=== PATIENT | male | born 1985 | race Caucasian/White ===

== ENCOUNTER 2016-09-04 22:26 | Emergency (ER) | payer MEDICAID, OTHER ==
[2016-09-04 23:58] LABS: PTT 26.6 SEC (22.9-36.1); Prothrombin Time 13.1 SEC (12.0-14.7)
[2016-09-05] LABS: Amphetamine Not Detected (NotDetected); Barbiturates Screen Not Detected (NotDetected); Benzodiazepine Screen Not Detected (NotDetected); Cocaine Metabolite Screen Not Detected (NotDetected); Medtox Control Line Valid? VALID (VALID); Methadone Not Detected (NotDetected); Methamphetamine Not Detected (NotDetected); Opiate Screen Not Detected (NotDetected); Oxycodone Screen Not Detected (NotDetected); Phencyclidine (PCP) Not Detected (NotDetected); THC/Cannabinoid Screen Not Detected (NotDetected); Tricyclic Screen Not Detected (NotDetected)
[2016-09-05 00:01] LABS: Bacteria/HPF 2+ HPF (None Seen); Bilirubin Negative (Negative); Blood, Urine Negative (Negative); Clarity Turbid (Clear); Crystals/HPF 3+ AMORPH PHOS HPF (Negative); Glucose, Urine (Dipstick) Negative (Negative); Leukocyte Trace (Negative); Nitrite Negative (Negative); Protein, Urine (Dipstick) Negative (Neg-Trace); RBC/HPF 0-3 HPF (0-3); Renal Epithelial 0-3 HPF (0-3); Specific Gravity, Urine 1.025 (1.005-1.030); Transitional Epithelial 0-3 HPF (0-3); Urobilinogen 0.2 mg/dL (0.2-1.0); pH, Urine 7.5 (5.0-9.0)
[2016-09-05 00:05] LABS: Acetaminophen Less than 6.0 mcg/mL (10.0-30.0); Alcohol Less than 10 mg/dL (Less than 10); Salicylate Less than 8.0 mg/dL (15.0-30.0)
[2016-09-05 00:08] LABS: #Basophils 0.1 thou/uL (0.0-0.2); #Eosinphils 0.2 thou/uL (0.0-0.7); #Lymphocytes 2.5 thou/uL (1.20-3.40); #Monocytes 0.6 thou/uL (0.11-0.59); #Neutrophils 5.3 thou/uL (1.40-6.50); %Eosinophils 2.7 % (0.0-10.0); %Lymphocytes 28.7 % (21.0-51.0); %Monocytes 7.3 % (0.0-10.0); %Neutrophils 60.3 % (42.0-75.0); Hemoglobin 14.7 g/dL (14.0-18.0); Mean Corpuscular HGB CONC 34.3 g/dL (32.0-36.0); Mean Corpuscular Hemoglobin 30.8 pg (27.0-31.0); Mean Corpuscular Volume 89.7 fl (80.0-94.0); Mean Platelet Volume 8.8 fL (7.4-10.4); Platelet Count 223 thou/uL (130-400); RBC Distribution Width 11.4 % (11.5-14.5); Red Blood Cell (RBC) Count 4.79 mill/uL (4.70-6.10); White Blood Cell (WBC) Count 8.8 thou/uL (4.8-10.8)
[2016-09-05 00:11] LABS: ALT (SGPT) 16 U/L (8-55); AST (SGOT) 14 U/L (5-34); Alkaline Phosphatase 69 U/L (40-150); Anion Gap 12 mmol/L (10-20); BUN (Urea Nitrogen) 14 mg/dL (8.9-20.6); Bilirubin, Total Less than 0.3 mg/dL (0.2-1.2); CK (CPK) 114 U/L (30-200); Calc. Creatinine Clearance 0 mL/min (70-130); Calcium 9.4 mg/dL (7.8-10.44); Carbon Dioxide 26 mmol/L (22-29); Chloride 106 mmol/L (98-107); Estimated GFR-MDRD Greater than 90; Globulin 2.6 g/dL (2.4-3.5); Glucose 93 mg/dL (70-105); Magnesium 2.5 mg/dL (1.6-2.6); Potassium 3.9 mmol/L (3.5-5.1); Protein, Total 6.6 g/dL (6.0-8.3); Sodium 140 mmol/L (136-145)
[2016-09-05 00:20] LABS: CKMB 0.8 ng/mL (0-6.6); Troponin I Less than 0.010 ng/mL (< 0.028)
[2016-09-05] MEDS ORDERED: Sulfameth/Trimethoprim DS 800-160mg TAB ONE (01:21)
[2016-09-05] MEDS ORDERED: ALPRAZolam 0.25 MG TAB ONE ×2 (01:37→01:38)
--- NOTE | 2016-09-05 11:08 | RAD ---
UPRIGHT PORTABLE CHEST 1 VIEW: Date: 09/04/16 HISTORY: 31-year-old male with seizure. COMPARISON: 03/13/16. FINDINGS: Heart size is normal. The lungs are clear. No pneumonia, edema, pleural effusion, or other acute pro cess. Stable from prior study. IMPRESSION: No acute intrathoracic disease. POS: [facility]
--- NOTE | 2016-09-05 14:26 | CT ---
PRELIMINARY REPORT/[facility]/EMERGENCY AFTER HOURS PROCEDURE: EXAM: CT Cervical Spine Without Intravenous Contrast CLINICAL HISTORY: 31 years old, male; Injury or trauma; Fall; Initial encounter; Abrasion TECHNIQUE: Axial computed tomography images of the cervical spine without intravenous contrast. Coronal and sagittal reformatted images were created and reviewed. COMPARISON: No relevant prior studies available. FINDINGS: Vertebrae: Straightening of the cervical spine. No acute fracture. Discs/spinal canal/neural foramina: No acute findings. No spinal canal stenosis. Soft tissues: Unremarkable. Lung apices: Unremarkable as visualized. IMPRESSION: No acute cervical spine fracture or dislocation. Thank you for allowing us to participate in the care of your patient. Dictated and Authenticated by: Viola Palafox MD 09/05/2016 12:36 AM Central Time ([place] \[place]\ [place]) FINAL REPORT EMERGENCY AFTER HOURS CERVICAL SPINE CT SCAN WITHOUT IV CONTRAST: Date: 09/05/16 Time: 0012 hours IMPRESSION: There is some straightening of the cervical spine. No acute fracture or facet dislocation. Report in agreement with preliminary report given on-call by Gustavo. POS: [facility]
--- NOTE | 2016-09-05 14:27 | CT ---
PRELIMINARY REPORT/[facility]/EMERGENCY AFTER HOURS PROCEDURE: EXAM: CT Head Without Intravenous Contrast CLINICAL HISTORY: 31 years old, male; Injury or trauma; Fall TECHNIQUE: Axial computed tomography images of the head/brain without intravenous contrast. Coronal and sagittal reformatted images were created and reviewed. COMPARISON: No relevant prior studies available. FINDINGS: Brain: No hemorrhage. No significant white matter disease. No edema. Ventricles: Unremarkable. No ventriculomegaly. Bones/joints: Unremarkable. No acute fracture. Soft tissues: Unremarkable. Sinuses: Unremarkable as visualized. No acute sinusitis. Mastoid air cells: Unremarkable as visualized. No mastoid effusion. IMPRESSION: Normal head/brain CT. Thank you for allowing us to participate in the care of your patient. Dictated and Authenticated by: Viola Palafox MD 09/05/2016 12:37 AM Central Time ([place] \[place]\ [place]) FINAL REPORT EMERGENCY AFTER HOURS BRAIN CT WITHOUT IV CONTRAST: Date: 09/05/16 Time: 0008 hours IMPRESSION: No mass or bleed, or other significant acute intracranial process. Stable from 09/10/15. Report in agreement with preliminary report given on-call by Gustavo. POS: [facility]
== END 2016-09-05 01:46 ==
LOC: MADERS 22:26
DX: S00.03XA Contusion of scalp, initial encounter (principal); F43.0 Acute stress reaction; N39.0 Urinary tract infection, site not specified; F41.9 Anxiety disorder, unspecified; F25.9 Schizoaffective disorder, unspecified; F32.9 Major depressive disorder, single episode, unspecified; F17.210 Nicotine dependence, cigarettes, uncomplicated; G89.29 Other chronic pain; M54.9 Dorsalgia, unspecified; Z91.14 Patient's other noncompliance with medication regimen; W01.190A Fall on same level from slipping, tripping and stumbling with subsequent striking against furniture, initial encounter; Y92.096 Garden or yard of other non-institutional residence as the place of occurrence of the external cause
CPT/HCPCS: 36415; 70450; 71010; 72125; 80053; 80306; 80307; 81001; 82550; 82553; 83735; 83880; 84443; 84484; 85025; 85610; 85730; 87086; 93005; 94760

== ENCOUNTER 2018-02-20 15:09 | Emergency (ER) | payer OTHER ==
[2018-02-20 15:45] LABS: Bilirubin Negative (Negative); Blood, Urine Negative (Negative); Clarity Clear (Clear); Glucose, Urine (Dipstick) Negative (Negative); Leukocyte Negative (Negative); Nitrite Negative (Negative); Protein, Urine (Dipstick) Negative (Neg-Trace); Urobilinogen 0.2 mg/dL (0.2-1.0); pH, Urine 7.5 (5.0-9.0)
[2018-02-20 16:00] LABS: Amphetamine Detected (NotDetected); Barbiturates Screen Not Detected (NotDetected); Benzodiazepine Screen Not Detected (NotDetected); Cocaine Metabolite Screen Not Detected (NotDetected); Medtox Control Line Valid? VALID (VALID); Methadone Not Detected (NotDetected); Methamphetamine Not Detected (NotDetected); Opiate Screen Not Detected (NotDetected); Oxycodone Screen Not Detected (NotDetected); Phencyclidine (PCP) Not Detected (NotDetected); THC/Cannabinoid Screen Detected (NotDetected); Tricyclic Screen Not Detected (NotDetected)
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
== END 2018-02-20 16:10 | disposition home or self-care (01) ==
LOC: MADERS 15:09
DX: M54.5 Low back pain (principal); F41.9 Anxiety disorder, unspecified; F32.9 Major depressive disorder, single episode, unspecified; F20.9 Schizophrenia, unspecified; F41.0 Panic disorder [episodic paroxysmal anxiety]; F17.210 Nicotine dependence, cigarettes, uncomplicated; V43.62XA Car passenger injured in collision with other type car in traffic accident, initial encounter
CPT/HCPCS: 72100; 80306; 81003

== ENCOUNTER 2018-07-15 09:06 | Emergency (ER) | payer OTHER ==
[2018-07-15 09:44] LABS: #Basophils 0.1 thou/uL (0.0-0.2); #Eosinphils 0.3 thou/uL (0.0-0.7); #Lymphocytes 2.5 thou/uL (1.20-3.40); #Monocytes 0.6 thou/uL (0.11-0.59); #Neutrophils 7.3 thou/uL (1.40-6.50); %Basophils 0.6 % (0.0-1.0); %Eosinophils 2.7 % (0.0-10.0); %Lymphocytes 23.1 % (21.0-51.0); %Monocytes 5.7 % (0.0-10.0); %Neutrophils 67.8 % (42.0-75.0); Hemoglobin 14.7 g/dL (14.0-18.0); Mean Corpuscular HGB CONC 33.3 g/dL (32.0-36.0); Mean Corpuscular Hemoglobin 29.9 pg (27.0-31.0); Mean Corpuscular Volume 89.8 fL (78.0-98.0); Mean Platelet Volume 7.9 fL (7.4-10.4); Platelet Count 221 thou/uL (130-400); Red Blood Cell (RBC) Count 4.93 mill/uL (4.70-6.10); White Blood Cell (WBC) Count 10.8 thou/uL (4.8-10.8)
[2018-07-15 09:55] LABS: ALT (SGPT) 30 U/L (8-55); AST (SGOT) 19 U/L (5-34); Albumin 4.2 g/dL (3.5-5.0); Alkaline Phosphatase 62 U/L (40-150); Anion Gap 13 mmol/L (10-20); BUN (Urea Nitrogen) 14 mg/dL (8.9-20.6); Bilirubin, Total 0.2 mg/dL (0.2-1.2); Calc. Creatinine Clearance 0 mL/min (70-130); Calcium 9.1 mg/dL (7.8-10.44); Carbon Dioxide 27 mmol/L (22-29); Chloride 107 mmol/L (98-107); Estimated GFR-MDRD Greater than 90; Globulin 2.3 g/dL (2.4-3.5); Glucose 92 mg/dL (70-105); Potassium 4.2 mmol/L (3.5-5.1); Protein, Total 6.5 g/dL (6.0-8.3); Sodium 143 mmol/L (136-145)
[2018-07-15 09:56] LABS: Acetaminophen Less than 6.0 mcg/mL (10.0-30.0); Alcohol Less than 10 mg/dL (Less than 10); Salicylate Less than 8.0 mg/dL (15.0-30.0)
--- NOTE | 2018-07-15 09:59 | CT ---
EXAM: CT cervical spine PROVIDED CLINICAL HISTORY: Neck pain after falling down stairs secondary to a seizure. TECHNIQUE: Contiguous axial CT images are obtained through the cervical spine from the skull base to the level o f the T1 vertebral body. Sagittal and coronal reformatted images are provided. COMPARISON: 09/05/2016 FINDINGS: There is straightening of the normal cervical lordotic curvature which may be related to muscle spasm or positioning. No fracture or subluxation is seen involving the cervical spine. There is a prominent uncinate process hypertrophy at the C3-4 level which encroaches on the neural foramina grea ter on the right. No prevertebral soft tissue swelling apparent. Visualized lung apices appear clear. CT cervical spine is overall stable compared to study in 2017. IMPRESSION: No evidence for fracture or traumatic subluxation.
[2018-07-15 10:00] LABS: Bilirubin Negative (Negative); Blood, Urine Negative (Negative); Clarity Slightly Cloudy (Clear); Glucose, Urine (Dipstick) Negative (Negative); Leukocyte Negative (Negative); Nitrite Negative (Negative); Protein, Urine (Dipstick) Negative (Neg-Trace); Specific Gravity, Urine 1.025 (1.005-1.030); Urobilinogen 0.2 mg/dL (0.2-1.0); pH, Urine 6.5 (5.0-9.0)
[2018-07-15 10:13] LABS: Amphetamine Not Detected (NotDetected); Barbiturates Screen Not Detected (NotDetected); Benzodiazepine Screen Not Detected (NotDetected); Cocaine Metabolite Screen Not Detected (NotDetected); Medtox Control Line Valid? VALID (VALID); Methadone Not Detected (NotDetected); Methamphetamine Not Detected (NotDetected); Opiate Screen Not Detected (NotDetected); Oxycodone Screen Not Detected (NotDetected); Phencyclidine (PCP) Not Detected (NotDetected); THC/Cannabinoid Screen Detected (NotDetected); Tricyclic Screen Not Detected (NotDetected)
--- NOTE | 2018-07-15 10:59 | CT ---
CT HEAD WITHOUT CONTRAST: INDICATIONS: Seizure. Fall. Injury. COMPARISON: 09/05/2016 FINDINGS: There is no acute intracranial hemorrhage, mass effect, midline shift, or ventriculomegaly. No acute fluid level of the paranasal sinuses. IMPRESSION: No acute intracranial hemorrhage or mass effect. POS: [facility]
[2018-07-15] MEDS ORDERED: Ibuprofen 800 MG TAB ONE (13:34)
[2018-07-15 14:57] LABS: Carbamazepine-Tegretol 6.3 ug/mL (4.0-12.0)
== END 2018-07-15 15:55 | disposition home or self-care (01) ==
LOC: MADERS 09:06
DX: R56.9 Unspecified convulsions (principal); S16.1XXA Strain of muscle, fascia and tendon at neck level, initial encounter; F41.0 Panic disorder [episodic paroxysmal anxiety]; F32.9 Major depressive disorder, single episode, unspecified; F20.9 Schizophrenia, unspecified; F17.210 Nicotine dependence, cigarettes, uncomplicated; Z79.899 Other long term (current) drug therapy; W19.XXXA Unspecified fall, initial encounter
CPT/HCPCS: 36415; 70450; 72125; 80053; 80156; 80306; 80307; 81003; 83605; 85025

== ENCOUNTER 2018-08-27 14:55 | Emergency (ER) | payer OTHER | END 2018-08-27 15:37 | LOC: MADERS 14:55 | DX: R56.9 Unspecified convulsions (principal); F20.9 Schizophrenia, unspecified; F32.9 Major depressive disorder, single episode, unspecified; F41.0 Panic disorder [episodic paroxysmal anxiety]; F17.210 Nicotine dependence, cigarettes, uncomplicated; Z79.899 Other long term (current) drug therapy | CPT/HCPCS: 99284 ==

== ENCOUNTER 2018-08-29 07:53 | Emergency (ER) | payer OTHER ==
[2018-08-29] MEDS ORDERED: carBAMazepine 200 MG TAB ONE (08:19)
[2018-08-29 08:44] LABS: #Basophils 0.1 thou/uL (0.0-0.2); #Eosinphils 0.3 thou/uL (0.0-0.7); #Lymphocytes 1.8 thou/uL (1.20-3.40); #Monocytes 0.5 thou/uL (0.11-0.59); #Neutrophils 4.6 thou/uL (1.40-6.50); %Eosinophils 4.3 % (0.0-10.0); %Lymphocytes 24.6 % (21.0-51.0); %Monocytes 6.5 % (0.0-10.0); %Neutrophils 63.7 % (42.0-75.0); Hemoglobin 14.6 g/dL (14.0-18.0); Mean Corpuscular HGB CONC 32.8 g/dL (32.0-36.0); Mean Corpuscular Hemoglobin 29.2 pg (27.0-31.0); Mean Platelet Volume 8.1 fL (7.4-10.4); Platelet Count 218 thou/uL (130-400); RBC Distribution Width 11.7 % (11.5-14.5); White Blood Cell (WBC) Count 7.2 thou/uL (4.8-10.8)
[2018-08-29 08:56] LABS: Anion Gap 9 mmol/L (10-20); BUN (Urea Nitrogen) 12 mg/dL (8.9-20.6); Calc. Creatinine Clearance 0 mL/min (70-130); Carbon Dioxide 28 mmol/L (22-29); Chloride 107 mmol/L (98-107); Estimated GFR-MDRD Greater than 90; Glucose 84 mg/dL (70-105); Sodium 140 mmol/L (136-145)
== END 2018-08-29 09:35 ==
LOC: MADERS 07:53
DX: R56.9 Unspecified convulsions (principal); F41.0 Panic disorder [episodic paroxysmal anxiety]; F32.9 Major depressive disorder, single episode, unspecified; F20.9 Schizophrenia, unspecified; F17.210 Nicotine dependence, cigarettes, uncomplicated; Z79.899 Other long term (current) drug therapy
CPT/HCPCS: 80048; 85025; 99284

== ENCOUNTER 2018-09-03 06:33 | Emergency (ER) | payer OTHER ==
[2018-09-03 07:09] LABS: Anion Gap 12 mmol/L (10-20); BUN (Urea Nitrogen) 9 mg/dL (8.9-20.6); Calc. Creatinine Clearance 0 mL/min (70-130); Calcium 8.8 mg/dL (7.8-10.44); Carbon Dioxide 25 mmol/L (22-29); Chloride 109 mmol/L (98-107); Estimated GFR-MDRD Greater than 90; Glucose 83 mg/dL (70-105); Potassium 4.4 mmol/L (3.5-5.1); Sodium 142 mmol/L (136-145)
--- NOTE | 2018-09-03 07:16 | CT ---
CT HEAD NONCONTRAST: Date: 09/03/18 COMPARISON: 07/15/18. INDICATION: Seizure. FINDINGS: No intracranial hemorrhage, mass effect, midline shift, or ventriculomegaly. No significant interval change. IMPRESSION: 1. Stable head CT, without acute intracranial abnormality. 2. Incidental mild paranasal sinus mucosal thickening. POS: [facility]
== END 2018-09-03 07:45 ==
LOC: MADERS 06:33
DX: R56.9 Unspecified convulsions (principal); F32.9 Major depressive disorder, single episode, unspecified; F20.9 Schizophrenia, unspecified; F17.210 Nicotine dependence, cigarettes, uncomplicated; F41.0 Panic disorder [episodic paroxysmal anxiety]; Z79.899 Other long term (current) drug therapy
CPT/HCPCS: 70450; 80048; 84146

== ENCOUNTER 2018-09-06 01:18 | Emergency (ER) | payer OTHER ==
[2018-09-06] MEDS ORDERED: carBAMazepine 200 MG TAB ONE (02:01)
[2018-09-06] MEDS ORDERED: levETIRAcetam 500 MG/100 ML PREMIX BAG ONE (02:05)
[2018-09-06 02:23] LABS: #Basophils 0.1 thou/uL (0.0-0.2); #Eosinphils 0.2 thou/uL (0.0-0.7); #Lymphocytes 2.2 thou/uL (1.20-3.40); #Monocytes 0.5 thou/uL (0.11-0.59); #Neutrophils 4.3 thou/uL (1.40-6.50); %Basophils 1.2 % (0.0-1.0); %Eosinophils 2.4 % (0.0-10.0); %Lymphocytes 29.8 % (21.0-51.0); %Monocytes 7.5 % (0.0-10.0); %Neutrophils 59.1 % (42.0-75.0); Mean Corpuscular Hemoglobin 29.8 pg (27.0-31.0); Mean Corpuscular Volume 87.8 fL (78.0-98.0); Mean Platelet Volume 7.9 fL (7.4-10.4); Platelet Count 201 thou/uL (130-400); RBC Distribution Width 11.5 % (11.5-14.5); Red Blood Cell (RBC) Count 5.02 mill/uL (4.70-6.10); White Blood Cell (WBC) Count 7.2 thou/uL (4.8-10.8)
[2018-09-06 02:48] LABS: ALT (SGPT) 19 U/L (8-55); AST (SGOT) 15 U/L (5-34); Alkaline Phosphatase 71 U/L (40-150); Anion Gap 12 mmol/L (10-20); BUN (Urea Nitrogen) 9 mg/dL (8.9-20.6); Bilirubin, Total 0.4 mg/dL (0.2-1.2); CK (CPK) 227 U/L (30-200); Calc. Creatinine Clearance 0 mL/min (70-130); Calcium 8.6 mg/dL (7.8-10.44); Carbon Dioxide 27 mmol/L (22-29); Chloride 108 mmol/L (98-107); Estimated GFR-MDRD Greater than 90; Globulin 2.1 g/dL (2.4-3.5); Glucose 94 mg/dL (70-105); Potassium 3.9 mmol/L (3.5-5.1); Protein, Total 6.1 g/dL (6.0-8.3); Sodium 143 mmol/L (136-145)
== END 2018-09-06 03:00 ==
LOC: MADERS 01:18
DX: G40.909 Epilepsy, unspecified, not intractable, without status epilepticus (principal); F41.9 Anxiety disorder, unspecified; F32.9 Major depressive disorder, single episode, unspecified; F17.210 Nicotine dependence, cigarettes, uncomplicated
CPT/HCPCS: 36415; 80053; 82550; 83605; 85025; 96365; J1953

== ENCOUNTER 2020-04-21 16:40 | Emergency (ER) | payer OTHER, SELFPAY ==
[2020-04-21 17:36] LABS: #Basophils 0.1 thou/uL (0.0-0.2); #Eosinphils 0.2 thou/uL (0.0-0.7); #Lymphocytes 1.9 thou/uL (1.20-3.40); #Monocytes 0.4 thou/uL (0.11-0.59); #Neutrophils 3.9 thou/uL (1.40-6.50); %Basophils 1.5 % (0.0-1.0); %Eosinophils 2.8 % (0.0-10.0); %Lymphocytes 29.1 % (21.0-51.0); %Neutrophils 60.7 % (42.0-75.0); Hemoglobin 15.4 g/dL (14.0-18.0); Mean Corpuscular HGB CONC 33.2 g/dL (32.0-36.0); Mean Corpuscular Hemoglobin 29.4 pg (27.0-31.0); Mean Corpuscular Volume 88.4 fL (78.0-98.0); Mean Platelet Volume 8.1 fL (7.4-10.4); Platelet Count 240 thou/uL (130-400); RBC Distribution Width 10.7 % (11.5-14.5); Red Blood Cell (RBC) Count 5.25 mill/uL (4.70-6.10); White Blood Cell (WBC) Count 6.5 thou/uL (4.8-10.8)
[2020-04-21 17:43] LABS: Bilirubin Small (Negative); Blood, Urine Large (Negative); Clarity Cloudy (Clear); Glucose, Urine (Dipstick) Negative (Negative); Ketone, Urine Trace mg/dL (Negative); Leukocyte Negative (Negative); Nitrite Negative (Negative); Protein, Urine (Dipstick) 100 mg/dL (Neg-Trace)
[2020-04-21 17:44] LABS: Bacteria/HPF Rare-Few HPF (None Seen); RBC/HPF Greater than 50 HPF (0-3); Squamous Epithelial None Seen HPF (0-3); WBC/HPF 0-3 HPF (0-3)
[2020-04-21 17:47] LABS: Anion Gap 14 mmol/L (10-20); BUN (Urea Nitrogen) 7 mg/dL (8.9-20.6); Calc. Creatinine Clearance 0 mL/min (70-130); Calcium 9.1 mg/dL (7.8-10.44); Carbon Dioxide 26 mmol/L (22-29); Chloride 103 mmol/L (98-107); Glucose 96 mg/dL (70-105); Potassium 4.1 mmol/L (3.5-5.1); Sodium 139 mmol/L (136-145)
--- NOTE | 2020-04-21 18:23 | CT ---
Exam: Abdomen CT without contrast Pelvic CT without contrast HISTORY: Hematuria COMPARISON: None FINDINGS: Abdomen CT: Lung bases:Clear Heart size: Normal heart size. No significant pericardial fluid Aorta: Normal caliber aorta. No periaortic fat stranding Solid organs: Limited evaluation by the absence of intravenous contrast. Grossly no solid organ abnor mality Lymph nodes: No gastrohepatic, retrocrural or periportal lymphadenopathy Gallbladder: Unremarkable Mesentery: No mass, lymphadenopathy, free air or free fluid Kidneys: Bilaterally, no hydronephrosis, nephrolithiasis or perinephric fat stranding. Bilateral uret ers have a normal caliber. No hydroureter, periureteral fat stranding or ureterolithiasis. Alimentary canal: Limited evaluation of the alimentary canal by the lack of oral contrast. Multiple n ormal caliber small bowel loops. Normal ileocecal junction. Scattered fecal material in a nondistended, nondilated colon. Scattered diverticula. No evidence of diverticulitis. Normal caliber appendix. CT PELVIS: No mass, adenopathy, free air or free fluid. Urinary bladder: Unremarkable. Osseous structures: No lytic or blastic lesions in the osseous structures. There are bilateral pars d efects at L4 and L5. Grade 1 anterolisthesis of L4 upon L5 and L5 upon S1. IMPRESSION: 1. No evidence of nephrolithiasis or obstructive uropathy.
== END 2020-04-21 18:45 ==
LOC: MADERS 16:40
DX: R31.9 Hematuria, unspecified (principal); F41.0 Panic disorder [episodic paroxysmal anxiety]; F17.210 Nicotine dependence, cigarettes, uncomplicated; Z79.899 Other long term (current) drug therapy
CPT/HCPCS: 36415; 74176; 80048; 81003; 81015; 85025

== ENCOUNTER 2023-05-22 09:25 | Emergency (ER) | payer OTHER ==
[2023-05-22 10:37] LABS: #Basophils 0.1 thou/uL (0.0-0.2); #Eosinphils 0.2 thou/uL (0.0-0.7); #Lymphocytes 1.1 thou/uL (1.20-3.40); #Monocytes 0.6 thou/uL (0.11-0.59); #Neutrophils 4.3 thou/uL (1.40-6.50); %Basophils 0.8 % (0.0-1.0); %Eosinophils 3.2 % (0.0-10.0); %Lymphocytes 17.6 % (21.0-51.0); %Monocytes 10.1 % (0.0-10.0); %Neutrophils 68.3 % (42.0-75.0); Hematocrit 47.6 % (42.0-52.0); Mean Corpuscular HGB CONC 31.6 g/dL (32.0-36.0); Mean Corpuscular Hemoglobin 28.8 pg (27.0-31.0); Mean Corpuscular Volume 90.9 fl (78.0-98.0); Mean Platelet Volume 9.3 fL (7.4-10.4); Platelet Count 203 10x3/uL (130-400); RBC Distribution Width 12.6 % (11.5-14.5); Red Blood Cell (RBC) Count 5.23 mill/uL (4.70-6.10); White Blood Cell (WBC) Count 6.3 10x3/uL (4.8-10.8)
[2023-05-22 10:57] LABS: ALT (SGPT) 51 U/L (8-55); AST (SGOT) 74 U/L (5-34); Albumin 3.9 g/dL (3.5-5.0); Alkaline Phosphatase 75 U/L (40-110); Anion Gap 16 mmol/L (10-20); BUN (Urea Nitrogen) 9 mg/dL (8.9-20.6); Bilirubin, Total 0.5 mg/dL (0.2-1.2); Calc. Creatinine Clearance 0 mL/min (70-130); Calcium 8.7 mg/dL (7.8-10.44); Carbon Dioxide 22 mmol/L (22-29); Chloride 109 mmol/L (98-107); Estimated GFR 118; Globulin 2.2 g/dL (2.4-3.5); Glucose 95 mg/dL (70-105); Potassium 3.9 mmol/L (3.5-5.1); Protein, Total 6.1 g/dL (6.0-8.3); Sodium 143 mmol/L (136-145)
[2023-05-22] MEDS ORDERED: Sodium Chloride 0.9% 1,000 ML ONE (11:06)
[2023-05-22 13:15] LABS: Lactic Acid 2.2 mmol/L (0.5-2.2)
[2023-05-22] MEDS ORDERED: Lidocaine 1% PF 5 ML VIAL ONE (13:56)
[2023-05-22 15:30] LABS: Bilirubin Negative (Negative); Blood, Urine Negative (Negative); Clarity Clear (Clear); Glucose, Urine (Dipstick) 100 mg/dL (Negative); Ketone, Urine Negative (Negative); Leukocyte Negative (Negative); Nitrite Positive (Negative); Protein, Urine (Dipstick) Negative (Neg-Trace); Urobilinogen 0.2 mg/dL (Less than 2)
[2023-05-22 15:32] LABS: Specific Gravity, Urine 1.025 (1.002-1.036)
[2023-05-22 15:37] LABS: CAUTI Indications for Culture Alt mental st,lethar; RBC/HPF None Seen HPF (0-3)
[2023-05-22 15:38] LABS: Bacteria/HPF 4+ HPF (None Seen); Calcium Oxalate Crystals 2+ HPF (None Seen); Squamous Epithelial 0-3 HPF (0-3)
[2023-05-22 15:39] LABS: Urine Culture Reflex No No
[2023-05-22 17:07] LABS: Base Excess-Venous -1.6 mmol/L (-2.0 to 3.0); Bicarbonate (HCO3v) 26.8 mmol/L (22.0-28.0); CO2 Tension (PvCO2) 59.2 mmHg (42.0-51.0); Calcium, Ionized 1.24 mmol/L (1.15-1.33); Chloride 106 mmol/L (98-107); Hemoglobin - Calc 15.2 g/dL (14.0-18.0); Potassium 3.9 mmol/L (3.5-5.1); Sodium 142 mmol/L (138-145); T. Carbon Dioxide 28.6 mmol/L (22.0-28.0); vO2 Saturation-calc 85.1 % (60.0-85.0)
[2023-05-22] MEDS ORDERED: levETIRAcetam 500 MG TAB ONE ×2 (17:09→18:38)
[2023-05-22] MEDS ORDERED: Sodium Chloride 0.9% 100 ML ONE (17:16)
[2023-05-22] MEDS ORDERED: cefTRIAXone (ROCEPHIN) 1 GM VIAL ONE (17:16)
[2023-05-22] MEDS ORDERED: Lorazepam 2 MG/ML VIAL ONE (17:38)
[2023-05-22] MEDS ORDERED: levETIRAcetam 500 MG (5 mL) VIAL ONE (19:29)
[2023-05-22 19:33] LABS: CO2 Tension (PvCO2) 47.6 mmHg (42.0-51.0)
[2023-05-22 19:34] LABS: Base Excess-Venous -2.7 mmol/L (-2.0 to 3.0)
[2023-05-22 19:35] LABS: Calcium, Ionized 1.25 mmol/L (1.15-1.33); Chloride 108 mmol/L (98-107); Hemoglobin - Calc 15.3 g/dL (14.0-18.0); Sodium 150 mmol/L (138-145); T. Carbon Dioxide 25.5 mmol/L (22.0-28.0)
== END 2023-05-23 10:02 | disposition left against medical advice (07) ==
LOC: MADERS 09:25
DX: R56.9 Unspecified convulsions (principal); F17.210 Nicotine dependence, cigarettes, uncomplicated
CPT/HCPCS: 71045; 80053; 81001; 82330; 82803; 83605; 85025; 93005; J0696; J1953; J2060; J7050

== ENCOUNTER 2023-05-23 11:44 | Emergency (ER) | payer OTHER ==
[2023-05-23] MEDS ORDERED: Lorazepam 2 MG/ML VIAL ONE (11:52)
[2023-05-23] MEDS ORDERED: Ondansetron PF 4 MG/2 ML Vial ONE (11:53)
[2023-05-23] MEDS ORDERED: Valproate Sodium 500 MG/5 ML VIAL ONE (12:06)
[2023-05-23 12:28] LABS: #Basophils 0.1 thou/uL (0.0-0.2); #Eosinphils 0.2 thou/uL (0.0-0.7); #Monocytes 0.4 thou/uL (0.11-0.59); #Neutrophils 5.1 thou/uL (1.40-6.50); %Basophils 0.8 % (0.0-1.0); %Eosinophils 2.9 % (0.0-10.0); %Lymphocytes 14.4 % (21.0-51.0); %Monocytes 5.2 % (0.0-10.0); %Neutrophils 76.6 % (42.0-75.0); Hematocrit 43.8 % (42.0-52.0); Hemoglobin 14.3 g/dL (14.0-18.0); Mean Corpuscular HGB CONC 32.5 g/dL (32.0-36.0); Mean Corpuscular Hemoglobin 29.6 pg (27.0-31.0); Mean Platelet Volume 9.6 fL (7.4-10.4); Platelet Count 209 10x3/uL (130-400); RBC Distribution Width 12.5 % (11.5-14.5); Red Blood Cell (RBC) Count 4.81 mill/uL (4.70-6.10); White Blood Cell (WBC) Count 6.6 10x3/uL (4.8-10.8)
[2023-05-23 12:43] LABS: ALT (SGPT) 50 U/L (8-55); AST (SGOT) 33 U/L (5-34); Albumin 3.6 g/dL (3.5-5.0); Alkaline Phosphatase 83 U/L (40-110); Anion Gap 13 mmol/L (10-20); BUN (Urea Nitrogen) 8 mg/dL (8.9-20.6); Bilirubin, Total 0.4 mg/dL (0.2-1.2); Calc. Creatinine Clearance 0 mL/min (70-130); Calcium 8.7 mg/dL (7.8-10.44); Carbon Dioxide 23 mmol/L (22-29); Chloride 106 mmol/L (98-107); Estimated GFR 114; Globulin 2.7 g/dL (2.4-3.5); Glucose 112 mg/dL (70-105); Potassium 4.4 mmol/L (3.5-5.1); Protein, Total 6.3 g/dL (6.0-8.3); Sodium 138 mmol/L (136-145)
[2023-05-23 12:44] LABS: Acetaminophen Less than 10 mcg/mL (10.0-30.0); Alcohol Less than 10.0 mg/dL (Less than 10); Salicylate Less than 8.0 mg/dL (15.0-30.0)
[2023-05-23 12:46] LABS: Troponin I Less than 0.010 ng/mL (< 0.028)
[2023-05-23 14:14] LABS: Amphetamine Detected (NotDetected); Barbiturates Screen Not Detected (NotDetected); Benzodiazepine Screen Detected (NotDetected); Cocaine Metabolite Screen Not Detected (NotDetected); Methadone Not Detected (NotDetected); Methamphetamine Detected (NotDetected); Opiate Screen Not Detected (NotDetected); Oxycodone Screen Not Detected (NotDetected); Phencyclidine (PCP) Not Detected (NotDetected); THC/Cannabinoid Screen Not Detected (NotDetected); Tricyclic Screen Not Detected (NotDetected)
== END 2023-05-23 13:27 | disposition left against medical advice (07) ==
LOC: MADERS 11:44
DX: R56.9 Unspecified convulsions (principal); N39.0 Urinary tract infection, site not specified; F17.210 Nicotine dependence, cigarettes, uncomplicated
CPT/HCPCS: 70450; 71045; 80053; 80306; 80307; 81001; 82330; 82803; 83605; 84484; 85025; 93005; 96365; 96375; J0696; J1953; J2060; J2405; J7050

== ENCOUNTER 2023-11-16 19:23 | Emergency (ER) | payer OTHER ==
[2023-11-16] MEDS ORDERED: levETIRAcetam 500 MG (5 mL) VIAL ONE (19:56)
[2023-11-16 19:57] LABS: #Basophils 0.1 thou/uL (0.0-0.2); #Eosinphils 0.4 thou/uL (0.0-0.7); #Lymphocytes 1.8 thou/uL (1.20-3.40); #Monocytes 0.5 thou/uL (0.11-0.59); #Neutrophils 6.2 thou/uL (1.40-6.50); %Basophils 0.9 % (0.0-1.0); %Eosinophils 4.1 % (0.0-10.0); %Lymphocytes 19.6 % (21.0-51.0); %Monocytes 5.9 % (0.0-10.0); %Neutrophils 69.5 % (42.0-75.0); Hematocrit 43.4 % (42.0-52.0); Hemoglobin 14.1 g/dL (14.0-18.0); Mean Corpuscular HGB CONC 32.6 g/dL (32.0-36.0); Mean Corpuscular Hemoglobin 29.7 pg (27.0-31.0); Mean Corpuscular Volume 91.3 fl (78.0-98.0); Mean Platelet Volume 8.2 fL (7.4-10.4); Platelet Count 209 10x3/uL (130-400); RBC Distribution Width 12.1 % (11.5-14.5); Red Blood Cell (RBC) Count 4.76 mill/uL (4.70-6.10)
[2023-11-16] MEDS ORDERED: Sodium Chloride 0.9% 500 ML ONE (19:59)
[2023-11-16 20:05] LABS: ALT (SGPT) 19 U/L (8-55); AST (SGOT) 17 U/L (5-34); Albumin 3.7 g/dL (3.5-5.0); Alkaline Phosphatase 63 U/L (40-110); Anion Gap 17 mmol/L (10-20); BUN (Urea Nitrogen) 18 mg/dL (8.9-20.6); Bilirubin, Total 0.2 mg/dL (0.2-1.2); Calc. Creatinine Clearance 0 mL/min (70-130); Carbon Dioxide 20 mmol/L (22-29); Chloride 108 mmol/L (98-107); Estimated GFR 112; Globulin 2.6 g/dL (2.4-3.5); Glucose 120 mg/dL (70-105); Potassium 3.8 mmol/L (3.5-5.1); Protein, Total 6.3 g/dL (6.0-8.3); Sodium 141 mmol/L (136-145)
[2023-11-16] MEDS ORDERED: Ibuprofen 800 MG TAB ONE (20:47)
[2023-11-16] MEDS ORDERED: Acetaminophen 500 MG TAB ONE (20:48)
== END 2023-11-16 21:56 | disposition home or self-care (01) ==
LOC: MADERS 19:23
DX: G40.509 Epileptic seizures related to external causes, not intractable, without status epilepticus (principal); M25.512 Pain in left shoulder; F17.210 Nicotine dependence, cigarettes, uncomplicated
CPT/HCPCS: 80053; 85025; 94760; 96365; J1953; J7030

== ENCOUNTER 2023-12-20 19:20 | Emergency (ER) | payer OTHER ==
[2023-12-20] MEDS ORDERED: Lorazepam 2 MG/ML VIAL ONE (19:31)
[2023-12-20 20:15] LABS: Anion Gap 13 mmol/L (10-20); BUN (Urea Nitrogen) 10 mg/dL (8.9-20.6); Calc. Creatinine Clearance 0 mL/min (70-130); Calcium 8.9 mg/dL (7.8-10.44); Carbon Dioxide 23 mmol/L (22-29); Chloride 109 mmol/L (98-107); Eosinophils 8 % (0-10); Estimated GFR 114; Glucose 69 mg/dL (70-105); Hematocrit 43.5 % (42.0-52.0); Hemoglobin 14.3 g/dL (14.0-18.0); Lymphocytes 25 % (21-51); MDiff Complete? YES; Mean Corpuscular HGB CONC 32.8 g/dL (32.0-36.0); Mean Corpuscular Hemoglobin 30.5 pg (27.0-31.0); Mean Corpuscular Volume 92.9 fl (78.0-98.0); Mean Platelet Volume 8.2 fL (7.4-10.4); Monocytes 5 % (0-10); Neutrophil 62 % (42-75); Platelet Count 255 10x3/uL (130-400); Potassium 4.1 mmol/L (3.5-5.1); RBC Distribution Width 12.5 % (11.5-14.5); Red Blood Cell (RBC) Count 4.69 mill/uL (4.70-6.10); Sodium 141 mmol/L (136-145); White Blood Cell (WBC) Count 8.2 10x3/uL (4.8-10.8)
[2023-12-20] MEDS ORDERED: Ondansetron ODT 4 MG TAB ONE (20:59)
[2023-12-21 12:39] LABS: Carbamazepine-Tegretol 3.5 ug/mL (4.0-12.0)
== END 2023-12-20 22:05 | disposition home or self-care (01) ==
LOC: MADERS 19:20
DX: G40.909 Epilepsy, unspecified, not intractable, without status epilepticus (principal); M25.512 Pain in left shoulder
CPT/HCPCS: 70450; 72125; 72128; 80048; 80156; 84146; 85025; J2060; Q0162

== ENCOUNTER 2024-01-17 08:50 | Emergency (ER) | payer OTHER ==
[2024-01-17] MEDS ORDERED: Sodium Chloride 0.9% 1,000 ML ONE ×2 (09:02→09:40)
[2024-01-17] MEDS ORDERED: Lorazepam 2 MG/ML VIAL ONE (09:04)
[2024-01-17 09:17] LABS: #Basophils 0.1 thou/uL (0.0-0.2); #Eosinophils 0.4 thou/uL (0.0-0.7); #Lymphocytes 1.6 thou/uL (1.20-3.40); #Monocytes 0.7 thou/uL (0.11-0.59); #Neutrophils 4.9 thou/uL (1.40-6.50); %Basophils 1.2 % (0.0-1.0); %Eosinophils 5.5 % (0.0-10.0); %Lymphocytes 20.3 % (21.0-51.0); %Monocytes 9.2 % (0.0-10.0); %Neutrophils 63.8 % (42.0-75.0); Hematocrit 43.9 % (42.0-52.0); Hemoglobin 14.3 g/dL (14.0-18.0); Mean Corpuscular HGB CONC 32.5 g/dL (32.0-36.0); Mean Corpuscular Hemoglobin 29.8 pg (27.0-31.0); Mean Corpuscular Volume 91.7 fl (78.0-98.0); Mean Platelet Volume 8.8 fL (7.4-10.4); Platelet Count 249 10x3/uL (130-400); RBC Distribution Width 12.2 % (11.5-14.5); Red Blood Cell (RBC) Count 4.79 mill/uL (4.70-6.10); White Blood Cell (WBC) Count 7.7 10x3/uL (4.8-10.8)
[2024-01-17 09:29] LABS: Anion Gap 12 mmol/L (10-20); BUN (Urea Nitrogen) 10 mg/dL (8.9-20.6); Calc. Creatinine Clearance 0 mL/min (70-130); Carbon Dioxide 26 mmol/L (22-29); Chloride 107 mmol/L (98-107); Estimated GFR 114; Glucose 103 mg/dL (70-105); Potassium 3.4 mmol/L (3.5-5.1); Sodium 142 mmol/L (136-145)
[2024-01-17] MEDS ORDERED: Lactated Ringer's 1,000 ML ONE (10:34)
[2024-01-17 12:13] LABS: Bilirubin Negative (Negative); Blood, Urine Negative (Negative); Clarity Clear (Clear); Glucose, Urine (Dipstick) Negative (Negative); Ketone, Urine Negative (Negative); Leukocyte Negative (Negative); Nitrite Negative (Negative); Protein, Urine (Dipstick) Negative (Neg-Trace); Urobilinogen 0.2 mg/dL (Less than 2); pH, Urine 5.5 (5.0-9.0)
[2024-01-17 12:14] LABS: RBC/HPF 0-3 HPF (0-3)
[2024-01-17 12:15] LABS: Bacteria/HPF Rare-Few HPF (None Seen); CAUTI Indications for Culture Pelvic or flank pain; Squamous Epithelial 0-3 HPF (0-3); Urine Culture Reflex No No
[2024-01-17 12:25] LABS: Cocaine Metabolite Screen Not Detected (NotDetected); Phencyclidine (PCP) Not Detected (NotDetected); THC/Cannabinoid Screen Not Detected (NotDetected)
[2024-01-17 12:26] LABS: Amphetamine Detected (NotDetected); Barbiturates Screen Not Detected (NotDetected); Benzodiazepine Screen Not Detected (NotDetected); Methadone Not Detected (NotDetected); Methamphetamine Detected (NotDetected); Opiate Screen Not Detected (NotDetected); Oxycodone Screen Not Detected (NotDetected); Tricyclic Screen Not Detected (NotDetected)
[2024-01-17 16:28] LABS: Carbamazepine-Tegretol 1.5 ug/mL (4.0-12.0)
== END 2024-01-17 12:02 | disposition home or self-care (01) ==
LOC: MADERS 08:50
DX: R56.9 Unspecified convulsions (principal); F17.210 Nicotine dependence, cigarettes, uncomplicated; Z55.6 Problems related to health literacy
CPT/HCPCS: 80048; 80156; 80306; 81001; 85025; 96374; J2060; J7030; J7120